=== PATIENT | male | born 1950 | race Caucasian/White ===

== ENCOUNTER 2016-10-22 08:32 | Emergency (ER) | payer OTHER ==
--- NOTE | 2016-10-22 10:23 | DIAGNOSTIC IMAGING REPORT ---
PROCEDURE: XR LUMBAR SPINE 2 OR 3 VIEWS INDICATION: LOWER BACK PAIN TECHNIQUE: Three views. COMPARISON: None. FINDINGS: L5 S1 fusion. Spondylosis with disc space narrowing at L3-4. Osteophytes multiple levels. IMPRESSION: 1. No acute fractures.
--- NOTE | 2016-10-22 11:38 | ED NURSING NOTES ---
Clinical Report - Nurses [facility] [address] [place] [address] 10/22/2016 8:46 Patient: KATHIE DUGAN TRIAGE Triage time 08:37. Acuity: LEVEL 4. Chief Complaint: BACK PAIN. 08:37 10/22/16. 08:37 10/22/16. Alert. SEPSIS SCREEN: Sepsis Screen. Negative (no infection suspected/documented). PETER COMA SCORE: [place] Coma Scale: 15- eyes open spontaneously (4); best verbal response- oriented x 4 (5); best motor response- obeys commands (6). --08:41 Terrell Lea R.N. 08:37 10/22/16. BP: 123/76. HR: 64. RR: 18. O2 saturation: 100% on room air. Temp: 97.9 F (oral). Pain level now: 11/08. --08:41 Terrell Lea R.N. Weight: 79.3 kg stated. Height/Length: 67 inches Per Patient. BMI: 27.4. --08:39 Terrell Lea R.N. Medications Statins Support Oral. --08:40 Terrell Lea R.N. Medication/allergy information source: the patient. --08:41 Terrell Lea R.N. Allergies morphine.(Anaphylaxis) --08:40 Terrell Lea R.N. Codeine. ("sensitive") --08:40 Terrell Lea R.N. History Arrived by EMS. Historian: EMS and patient. Primary physician (CHRISTY). 08:37 10/22/16. ( Per EMS pt was helping someone move on Friday. Pt states he had back spasms yesterday and this AM this spasms reoccurred.). The patient has had trouble walking. Occurred at home. 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 PAST MEDICAL HX: Tetanus status: up-to-date. Immunizations: up-to-date. SOCIAL HX: Never smoker. Occasional alcohol use. No drug use. No infectious disease exposure. ABUSE ASSESSMENT: No report of abuse. FALL RISK ASSESSMENT: Fall risk assessment completed. No fall risk identified. NUTRITIONAL RISK ASSESSMENT: The nutritional risk assessment revealed no deficiencies. FUNCTIONAL ASSESSMENT: Functional assessment: no impairments noted. LEARNING NEEDS ASSESSMENT: The learning needs assessment revealed no barriers. SKIN INTEGRITY ASSESSMENT: Skin integrity risk assessment completed. No skin integrity risk identified. --08:41 Terrell Lea R.N. Treatment SCIENTIFIC PROGRAMMER ANALYST: See EMS report. BP: 162/90. HR: 62. RR: 14. O2 saturation: 100 % room air. --08:42 Terrell Lea R.N. PROBLEMS: Back Pain. --08:41 Terrell Lea R.N. ADDITIONAL SURGERIES: Back Surgery [1995]. --08:41 Terrell Lea R.N. Assessment 08:37 10/22/16. --08:41 Terrell Lea R.N. Interventions 08:10/22/16. 08:10/22/16. ID and allergy band on patient. To treatment room. --08:41 Terrell Lea R.N. PHYSICAL ASSESSMENT 08:41 10/22/16. To room via stretcher. GENERAL / NEURO / PSYCH: Alert. Oriented X 4. RESPIRATORY: Respirations not labored. CVS: Capillary refill less than 2 seconds. GI / : ( denies bowel or bladder loss). --08:41 Terrell Lea R.N. NURSING PROGRESS NOTES 08:10/22/16. The plan of care for this patient has been created. Patient gowned. Head of bed elevated. Reassurance given. Two patient identifiers checked. Call light placed in reach. Side rails up x 2. Bed placed in lowest position. Brakes of bed on. Brakes of chair on. Patient ready for evaluation- chart flagged and notification provided. --08:41 Terrell Lea R.N. 09:10/22/16. BP: 127/61. HR: 66. RR: 14. O2 saturation: 100% on room air. --09:26 Terrell Lea R.N. 09:10/22/16. --09:26 Terrell Lea R.N. 09:10/22/16. Patient informed about reason for wait and about plan of care. --09:26 Terrell Lea R.N. 09:35 10/22/2016 Diazepam (Diazepam) IM 5 mg given. Given in the left ventral gluteus. Allergies verified, confirmed 5 rights and sedative warning given to the patient. --09:35 Terrell Lea R.N. 09:35 10/22/2016 Toradol (Ketorolac Tromethamine) IM 60 mg given. Given in the left ventral gluteus. Allergies verified and confirmed 5 rights. --09:35 Terrell Lea R.N. 09:35 10/22/16. HR: 62. O2 saturation: 98% on room air. --09:35 Terrell Lea R.N. 09:35 10/22/16. Pulse oximeter and NIBP monitor placed on patient; monitor alarms on. --09:35 Terrell Lea R.N. 09:50 10/22/16. Patient transported to radiology by stretcher with [employer]. --09:50 Terrell Lea R.N. 10:02 10/22/16. ( X-ray completed). --10:02 Terrell Lea R.N. 10:03 10/22/16. Reassessment after medication administered. He has had no adverse reaction. Overall patient status is improved- he states feels better. --10:03 Terrell Lea R.N. 11:05 10/22/16. ( Pt ambulated to bathroom with 's assistance). --11:05 Terrell Lea R.N. 11:46 10/22/2016 Diazepam (Diazepam) IM 5 mg given. Given in the right deltoid. Allergies verified, confirmed 5 rights and sedative warning given to the patient and patient's family and supervisor park workers. --11:56 Terrell Lea R.N. DISPOSITION / DISCHARGE 11:57 10/22/16. Condition at departure: improved. The goals identified in the patient's plan of care were met. No learning barriers present. Discharge instructions provided and reviewed with the patient and spouse. Reviewed warnings. Reviewed medication(s). Treatments reviewed. Patient and spouse verbalized understanding. Written instructions provided in Portuguese. The patient was discharged by the physician. He was discharged home and accompanied by family. He left the Emergency Department in a wheelchair and via private vehicle. Family member driving. FALL RISK ASSESSMENT: Fall risk assessment completed. No fall risk identified. --11:57 Terrell Lea R.N. 11:56 10/22/16. BP: 121/70. HR: 70. RR: 14. O2 saturation: 99% on room air. Temp: 98 F (oral). --11:57 Terrell Lea R.N. 11:57 10/22/16. Departure time: :57. --11:57 Terrell Lea R.N. Locked/Released at 10/22/2016 12:13 by Terrell Lea R.N.
--- NOTE | 2016-10-22 11:38 | ED ORDER SUMMARY ---
..... Patient: KATHIE DUGAN OrderSheet [facility] VisitID: [id number] [place] [address] 65y, M Registration Date/Time: 10/22/2016 ORDER SHEET Weight: 79.3 kg (stated) Allergies: morphine, Codeine GENERAL ORDERS: Suture Set-up: (09:10/22/2016 Naga Lanier) (Cancelled: Physician Order9:27 Naga Lanier) Lumbar Spine 2 or 3V Urgent (09:10/22/2016 Naga Lanier) (Ack 9:34 KHoerwing) (10:01 JBoardley R.N.) MEDICATION ORDERS: Cffkirz-Dvzkhb-Wggtb Pertussis IM 0.5 mL (NOW, per protocol) (:10/22/2016 Naga Lanier) (Cancelled: Physician Order9:28 Naga Lanier) Diazepam IM 5 mg (HIGH ALERT MEDICATION, NOW) (09:10/22/2016 Naga Lanier) (Ack 9:30 JBoardley R.N.) (9:35 JBoardley R.N.) Toradol IM 60 mg (NOW) (09:10/22/2016 Naga Lanier) (Ack 9:30 JBoardley R.N.) (9:35 JBoardley R.N.) Diazepam IM 5 mg (HIGH ALERT MEDICATION, NOW) (11:41 10/22/2016 Naga Lanier) (11:56 JBoardley R.N.) IV FLUIDS: ORDER SHEET NOTES: [Electronically signed by Terrell Lea R.N. (12:13 10/22/2016)] [Electronically signed by Vance Avilez Dr. (21:45 10/22/2016)] [Electronically locked/signed by Terrell Lea R.N. (12:13 10/22/2016)]
--- NOTE | 2016-10-22 11:38 | ED NURSING NOTES ---
Clinical Report - Nurses [facility] [address] [place] [address] 10/22/2016 8:46 Patient: KATHIE DUGAN TRIAGE Triage time 08:37. Acuity: LEVEL 4. Chief Complaint: BACK PAIN. 08:37 10/22/16. 08:37 10/22/16. Alert. SEPSIS SCREEN: Sepsis Screen. Negative (no infection suspected/documented). PETER COMA SCORE: [place] Coma Scale: 15- eyes open spontaneously (4); best verbal response- oriented x 4 (5); best motor response- obeys commands (6). --08:41 Terrell Lea R.N. 08:37 10/22/16. BP: 123/76. HR: 64. RR: 18. O2 saturation: 100% on room air. Temp: 97.9 F (oral). Pain level now: 11/08. --08:41 Terrell Lea R.N. Weight: 79.3 kg stated. Height/Length: 67 inches Per Patient. BMI: 27.4. --08:39 Terrell Lea R.N. Medications Statins Support Oral. --08:40 Terrell Lea R.N. Medication/allergy information source: the patient. --08:41 Terrell Lea R.N. Allergies morphine.(Anaphylaxis) --08:40 Terrell Lea R.N. Codeine. ("sensitive") --08:40 Terrell Lea R.N. History Arrived by EMS. Historian: EMS and patient. Primary physician (CHRISTY). 08:37 10/22/16. ( Per EMS pt was helping someone move on Friday. Pt states he had back spasms yesterday and this AM this spasms reoccurred.). The patient has had trouble walking. Occurred at home. 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 PAST MEDICAL HX: Tetanus status: up-to-date. Immunizations: up-to-date. SOCIAL HX: Never smoker. Occasional alcohol use. No drug use. No infectious disease exposure. ABUSE ASSESSMENT: No report of abuse. FALL RISK ASSESSMENT: Fall risk assessment completed. No fall risk identified. NUTRITIONAL RISK ASSESSMENT: The nutritional risk assessment revealed no deficiencies. FUNCTIONAL ASSESSMENT: Functional assessment: no impairments noted. LEARNING NEEDS ASSESSMENT: The learning needs assessment revealed no barriers. SKIN INTEGRITY ASSESSMENT: Skin integrity risk assessment completed. No skin integrity risk identified. --08:41 Terrell Lea R.N. Treatment QUALITY CONTROL ANALYST: See EMS report. BP: 162/90. HR: 62. RR: 14. O2 saturation: 100 % room air. --08:42 Terrell Lea R.N. PROBLEMS: Back Pain. --08:41 Terrell Lea R.N. ADDITIONAL SURGERIES: Back Surgery [1995]. --08:41 Terrell Lea R.N. Assessment 08:37 10/22/16. --08:41 Terrell Lea R.N. Interventions 08:10/22/16. 08:10/22/16. ID and allergy band on patient. To treatment room. --08:41 Terrell Lea R.N. PHYSICAL ASSESSMENT 08:41 10/22/16. To room via stretcher. GENERAL / NEURO / PSYCH: Alert. Oriented X 4. RESPIRATORY: Respirations not labored. CVS: Capillary refill less than 2 seconds. GI / : ( denies bowel or bladder loss). --08:41 Terrell Lea R.N. NURSING PROGRESS NOTES 08:10/22/16. The plan of care for this patient has been created. Patient gowned. Head of bed elevated. Reassurance given. Two patient identifiers checked. Call light placed in reach. Side rails up x 2. Bed placed in lowest position. Brakes of bed on. Brakes of chair on. Patient ready for evaluation- chart flagged and notification provided. --08:41 Terrell Lea R.N. 09:10/22/16. BP: 127/61. HR: 66. RR: 14. O2 saturation: 100% on room air. --09:26 Terrell Lea R.N. 09:10/22/16. --09:26 Terrell Lea R.N. 09:10/22/16. Patient informed about reason for wait and about plan of care. --09:26 Terrell Lea R.N. 09:35 10/22/2016 Diazepam (Diazepam) IM 5 mg given. Given in the left ventral gluteus. Allergies verified, confirmed 5 rights and sedative warning given to the patient. --09:35 Terrell Lea R.N. 09:35 10/22/2016 Toradol (Ketorolac Tromethamine) IM 60 mg given. Given in the left ventral gluteus. Allergies verified and confirmed 5 rights. --09:35 Terrell Lea R.N. 09:35 10/22/16. HR: 62. O2 saturation: 98% on room air. --09:35 Terrell Lea R.N. 09:35 10/22/16. Pulse oximeter and NIBP monitor placed on patient; monitor alarms on. --09:35 Terrell Lea R.N. 09:50 10/22/16. Patient transported to radiology by stretcher with [employer]. --09:50 Terrell Lea R.N. 10:02 10/22/16. ( X-ray completed). --10:02 Terrell Lea R.N. 10:03 10/22/16. Reassessment after medication administered. He has had no adverse reaction. Overall patient status is improved- he states feels better. --10:03 Terrell Lea R.N. 11:05 10/22/16. ( Pt ambulated to bathroom with 's assistance). --11:05 Terrell Lea R.N. 11:46 10/22/2016 Diazepam (Diazepam) IM 5 mg given. Given in the right deltoid. Allergies verified, confirmed 5 rights and sedative warning given to the patient and patient's family and retail consultant. --11:56 Terrell Lea R.N. DISPOSITION / DISCHARGE 11:57 10/22/16. Condition at departure: improved. The goals identified in the patient's plan of care were met. No learning barriers present. Discharge instructions provided and reviewed with the patient and spouse. Reviewed warnings. Reviewed medication(s). Treatments reviewed. Patient and spouse verbalized understanding. Written instructions provided in Portuguese. The patient was discharged by the physician. He was discharged home and accompanied by family. He left the Emergency Department in a wheelchair and via private vehicle. Family member driving. FALL RISK ASSESSMENT: Fall risk assessment completed. No fall risk identified. --11:57 Terrell Lea R.N. 11:56 10/22/16. BP: 121/70. HR: 70. RR: 14. O2 saturation: 99% on room air. Temp: 98 F (oral). --11:57 Terrell Lea R.N. 11:57 10/22/16. Departure time: :57. --11:57 Terrell Lea R.N. Locked/Released at 10/22/2016 12:13 by Terrell Lea R.N.
--- NOTE | 2016-10-22 11:38 | ED CLINICAL REPORT ---
Clinical Report - Physicians/Mid Levels [facility] [address] [place] [address] 10/22/2016 8:46 Patient: KATHIE DUGAN Time Seen: 09:00; initial patient contact. Arrived- By ambulance. Historian- patient. HISTORY OF PRESENT ILLNESS Chief Complaint: BACK PAIN. Modifying factors- worsened by bending over and lifting. Not relieved by anything. It is described as being moderate in degree. The quality is noted to be aching and similar to prior episodes. No radiation. Onset- about 2 days ago and it is still present and worsening. It was abrupt in onset and has been constant. No bladder dysfunction, bowel dysfunction, sensory loss or motor loss. Patient notes an injury but denies injury to the head or neck. Mechanism of injury- he was lifting. Occurred at a friend's house. Similar symptoms previously: Several times. Recent medical care: Not recently seen/assessed. REVIEW OF SYSTEMS No difficulty with urination or abdominal pain. All systems otherwise negative, except as recorded above. PAST HISTORY Back Pain. ADDITIONAL SURGERIES: Back Surgery [1995]. SOCIAL HISTORY Never smoker. Occasional alcohol use. No drug use. ADDITIONAL NOTES The nursing notes have been reviewed with agreement regarding the chief complaint, PMH and patient medications and allergies. PHYSICAL EXAM Appearance: Alert. Appears to be in pain. ENT: Pharynx normal. CVS: Heart sounds normal. No cardiac murmur. Respiratory: No respiratory distress. Breath sounds normal. Abdomen: No visible injury. Soft and nontender. Bowel sounds normal. Back: Moderate muscle spasm of the right and left posterior back. Moderate soft tissue tenderness in the right mid and lower and left mid and lower lumbar area. No vertebral point tenderness. Skin: Skin warm and dry. Normal skin color. Extremities: No lower extremity edema. Neuro: Oriented X 3. Mood/affect normal. No motor deficit. No sensory deficit. Straight leg raising: negative on the right and negative on the left. Reflexes normal. LABS, X-RAYS, AND EKG LS-Spine X-rays: Mild lumbar scoliosis (Dextro). Degenerative joint disease. No fracture or subluxation. (L5-S1 fusion hardware in proper allignment). Views: AP and lateral. Technique: good. The X-rays were independently viewed by me and interpreted contemporaneously by me. Prior films were not available for comparison. Interpretation time: 10:13. PROGRESS AND PROCEDURES Course of Care: 10/22/2016 09:26 BP: 127/61. HR: 66. RR: 14. O2 saturation: 100%. Vital Signs: have been reviewed as normal. Toradol 60mg IM given. Diazepam 5 mg IM given. Physical exam findings are improved. Symptoms much better. Disposition: Discharged home in good and improved condition. Condition: good. CLINICAL IMPRESSION Acute lumbar strain. INSTRUCTIONS No lifting greater than 5 lbs, no bending or stooping or no prolonged sitting until released. Your Current Medications: CONTINUE TAKING THE FOLLOWING MEDICATIONS: Statins Support Oral. Prescription Medications: Baclofen 20 mg: take 1 orally every 8 hours. Dispense thirty (30). No refills. Diclofenac 50 mg tablets: take 1 tablet orally every 8 hours as needed for pain or stiffness. Dispense thirty (30). No refill. Follow-up: Follow up with your doctor in about two days. Call for an appointment. Screening today revealed the patient's blood pressure to be in the pre-hypertensive range. The patient should follow up with a primary care provider for blood pressure management. (Electronically signed by Vance Avilez Dr. 10/22/2016 21:45)
--- NOTE | 2016-10-22 11:38 | ED ORDER SUMMARY ---
..... Patient: KATHIE DUGAN OrderSheet [facility] VisitID: [id number] [place] [address] 65y, M Registration Date/Time: 10/22/2016 ORDER SHEET Weight: 79.3 kg (stated) Allergies: morphine, Codeine GENERAL ORDERS: Suture Set-up: (09:10/22/2016 Naga Lanier) (Cancelled: Physician Order9:27 Naga Lanier) Lumbar Spine 2 or 3V Urgent (09:10/22/2016 Naga Lanier) (Ack 9:34 KHoerwing) (10:01 JBoardley R.N.) MEDICATION ORDERS: Uliyito-Qjzqbf-Csvoo Pertussis IM 0.5 mL (NOW, per protocol) (:10/22/2016 Naga Lanier) (Cancelled: Physician Order9:28 Naga Lanier) Diazepam IM 5 mg (HIGH ALERT MEDICATION, NOW) (09:10/22/2016 Naga Lanier) (Ack 9:30 JBoardley R.N.) (9:35 JBoardley R.N.) Toradol IM 60 mg (NOW) (09:10/22/2016 Naga Lanier) (Ack 9:30 JBoardley R.N.) (9:35 JBoardley R.N.) Diazepam IM 5 mg (HIGH ALERT MEDICATION, NOW) (11:41 10/22/2016 Naga Lanier) (11:56 JBoardley R.N.) IV FLUIDS: ORDER SHEET NOTES: [Electronically signed by Terrell Lea R.N. (12:13 10/22/2016)] [Electronically signed by Vance Avilez Dr. (21:45 10/22/2016)] [Electronically locked/signed by Terrell Lea R.N. (12:13 10/22/2016)]
--- NOTE | 2016-10-22 21:46 | ED DISCHARGE INSTRUCTIONS ---
Patient: KATHIE DUGAN General Instructions [facility] VisitID: [id number] [place] [address] 65y, M Registration Date/Time: 10/22/2016 Acute lumbar strain. INSTRUCTIONS No lifting greater than 5 lbs, no bending or stooping or no prolonged sitting until released. Your Current Medications: CONTINUE TAKING THE FOLLOWING MEDICATIONS: Statins Support Oral. Prescription Medications: Baclofen 20 mg: take 1 orally every 8 hours. Dispense thirty (30). No refills. Diclofenac 50 mg tablets: take 1 tablet orally every 8 hours as needed for pain or stiffness. Dispense thirty (30). No refill. Follow-up: Follow up with your doctor in about two days. Call for an appointment. Screening today revealed the patient's blood pressure to be in the pre-hypertensive range. The patient should follow up with a primary care provider for blood pressure management. ADDITIONAL INFORMATION Back Pain [Acute Or Chronic] Back pain is usually caused by an injury to the muscles or ligaments of the spine. Sometimes the disks that separate each bone in the spine may bulge and cause pain by pressing on a nearby nerve. Back pain may also appear after a sudden twisting/bending force (such as in a car accident), after a simple awkward movement, or lifting something heavy with poor body positioning. In either case, muscle spasm is often present and adds to the pain. Acute back pain usually gets better in one to two weeks. Back pain related to disk disease, arthritis in the spinal joints or spinal stenosis (narrowing of the spinal canal) can become chronic and last for months or years. Unless you had a physical injury (for example, a car accident or fall) X-rays are usually not ordered for the initial evaluation of back pain. If pain continues and does not respond to medical treatment, x-rays and other tests may be performed at a later time. Home Care: You may need to stay in bed the first few days. But, as soon as possible, begin sitting or walking to avoid problems with prolonged bed rest (muscle weakness, worsening back stiffness and pain, blood clots in the legs). When in bed, try to find a position of comfort. A firm mattress is best. Try lying flat on your back with pillows under your knees. You can also try lying on your side with your knees bent up towards your chest and a pillow between your knees. Avoid prolonged sitting. This puts more stress on the lower back than standing or walking. During the first two days after injury, apply an ICE PACK to the painful area for 20 minutes every 2-4 hours. This will reduce swelling and pain. HEAT (hot shower, hot bath or heating pad) works well for muscle spasm. You can start with ice, then switch to heat after two days. Some patients feel best alternating ice and heat treatments. Use the one method that feels the best to you. You may use acetaminophen (Tylenol) or ibuprofen (Motrin, Advil) to control pain, unless another pain medicine was prescribed. [NOTE: If you have chronic liver or kidney disease or ever had a stomach ulcer or GI bleeding, talk with your doctor before using these medicines.] Be aware of safe lifting methods and do not lift anything over 15 pounds until all the pain is gone. Follow Up with your doctor or this facility if your symptoms do not start to improve after one week. Physical therapy may be needed. [NOTE: If X-rays were taken, they will be reviewed by a radiologist. You will be notified of any new findings that may affect your care.] Get Prompt Medical Attention if any of the following occur: Pain becomes worse or spreads to your legs Weakness or numbness in one or both legs Loss of bowel or bladder control Numbness in the groin or genital area You have been given the following additional information: Back Pain (Acute Or Chronic) No lifting greater than 5 lbs, no bending or stooping or no prolonged sitting until released. (Electronically signed by Vance Avilez Dr. 10/22/2016 21:45)
--- NOTE | 2016-10-22 21:46 | ED MED RECONCILIATION SUMMARY ---
Patient: KATHIE DUGAN Medication Reconciliation Report [facility] VisitID: [id number] [address] [place] [address] 65y, M Registration Date/Time: 10/22/2016 Weight: 79.3 kg Height/Length: 67 in. BMI: 27.4 ALLERGIES: Codeine, morphine The patient's Home Medications are listed below: CONTINUE TAKING THE FOLLOWING MEDICATIONS: Statins Support Oral The source(s) of the original Home Medication information: patient The following Medications were given to the patient in the Emergency Department: Diazepam [IM] IM 5 mg, administered: 10/22/2016 9:35:00 AM Toradol [IM] IM 60 mg, administered: 10/22/2016 9:35:00 AM Diazepam [IM] IM 5 mg, administered: 10/22/2016 11:46:00 AM The following Medications were prescribed to the patient: Baclofen 20 mg: take 1 orally every 8 hours. Dispense thirty (30). No refills. -- Vance Avilez Dr. Diclofenac 50 mg tablets: take 1 tablet orally every 8 hours as needed for pain or stiffness. Dispense thirty (30). No refill. -- Vance Avilez Dr.
--- NOTE | 2016-10-22 21:46 | ED MAR SUMMARY ---
..... Medication Administration Record [facility] [address] [place] [address] Patient: KATHIE DUGAN Visit ID: [id number] 65y, M Weight: 79.3 kg Height/Length: 67 in BMI: 27.4 ALLERGIES: Codeine, morphine Given 09:10/22/2016 Terrell Lea R.N. Medication Administered: DIAZEPAM [IM] (DIAZEPAM), Dose: 5 mg IM. Medication Ordered: Diazepam IM 5 mg (HIGH ALERT MEDICATION, NOW). Given :10/22/2016 Terrell Lea R.N. Medication Administered: TORADOL [IM] (KETOROLAC TROMETHAMINE), Dose: 60 mg IM. Medication Ordered: Toradol IM 60 mg (NOW). Given 11:46 10/22/2016 Terrell Lea R.N. Medication Administered: DIAZEPAM [IM] (DIAZEPAM), Dose: 5 mg IM. Medication Ordered: Diazepam IM 5 mg (HIGH ALERT MEDICATION, NOW).
--- NOTE | 2016-10-22 21:46 | ED MED RECONCILIATION SUMMARY ---
Patient: KATHIE DUGAN Medication Reconciliation Report [facility] VisitID: [id number] [address] [place] [address] 65y, M Registration Date/Time: 10/22/2016 Weight: 79.3 kg Height/Length: 67 in. BMI: 27.4 ALLERGIES: Codeine, morphine The patient's Home Medications are listed below: CONTINUE TAKING THE FOLLOWING MEDICATIONS: Statins Support Oral The source(s) of the original Home Medication information: patient The following Medications were given to the patient in the Emergency Department: Diazepam [IM] IM 5 mg, administered: 10/22/2016 9:35:00 AM Toradol [IM] IM 60 mg, administered: 10/22/2016 9:35:00 AM Diazepam [IM] IM 5 mg, administered: 10/22/2016 11:46:00 AM The following Medications were prescribed to the patient: Baclofen 20 mg: take 1 orally every 8 hours. Dispense thirty (30). No refills. -- Vance Avilez Dr. Diclofenac 50 mg tablets: take 1 tablet orally every 8 hours as needed for pain or stiffness. Dispense thirty (30). No refill. -- Vance Avilez Dr.
--- NOTE | 2016-10-22 21:46 | ED MAR SUMMARY ---
..... Medication Administration Record Formerly [facility] [address] [place] [address] Patient: KATHIE DUGAN Visit ID: [id number] 65y, M Weight: 79.3 kg Height/Length: 67 in BMI: 27.4 ALLERGIES: Codeine, morphine Given 09:10/22/2016 Terrell Lea R.N. Medication Administered: DIAZEPAM [IM] (DIAZEPAM), Dose: 5 mg IM. Medication Ordered: Diazepam IM 5 mg (HIGH ALERT MEDICATION, NOW). Given :10/22/2016 Terrell Lea R.N. Medication Administered: TORADOL [IM] (KETOROLAC TROMETHAMINE), Dose: 60 mg IM. Medication Ordered: Toradol IM 60 mg (NOW). Given 11:46 10/22/2016 Terrell Lea R.N. Medication Administered: DIAZEPAM [IM] (DIAZEPAM), Dose: 5 mg IM. Medication Ordered: Diazepam IM 5 mg (HIGH ALERT MEDICATION, NOW).
== END 2016-10-22 11:57 | disposition home or self-care (01) ==
LOC: ED SRH 08:32
DX: S39.012A Strain of muscle, fascia and tendon of lower back, initial encounter (principal); X50.0XXA Overexertion from strenuous movement or load, initial encounter; Y93.89 Activity, other specified; Y92.009 Unspecified place in unspecified non-institutional (private) residence as the place of occurrence of the external cause; Y99.9 Unspecified external cause status; Z88.5 Allergy status to narcotic agent